=== PATIENT | female | born 2000 | race Hispanic/Latino ===

== ENCOUNTER 2022-03-30 20:26 | Emergency (ER) | payer SELFPAY ==
[2022-03-30] MEDS ORDERED: diphenhydrAMINE 25 MG CAP ONE (21:16)
[2022-03-30 22:21] LABS: BHCG - Serum Negative (NEGATIVE); Pregs Control Background? CLEAR/WHITE (CLR/WHITE); Pregs Control Bar Appear? YES (CONTROL BAR)
== END 2022-03-30 22:35 | disposition home or self-care (01) ==
LOC: CSHERS 20:26
DX: L25.9 Unspecified contact dermatitis, unspecified cause (principal)
CPT/HCPCS: 36415; 84703; 99283

== ENCOUNTER 2023-06-28 12:00 | Day surgery (SDC) | payer OTHER, BC ==
[2023-06-28 12:45] LABS: Bilirubin Neg (Negative); Blood, Urine 10 (Negative); Clarity Cloudy (Clear); Glucose, Urine (Dipstick) Normal (Negative); Ketone, Urine Negative (Negative); Leukocyte 500 (Negative); Nitrite Positive (Negative); Protein, Urine (Dipstick) 30 mg/dl (Neg-Trace); Specific Gravity, Urine 1.005 (1.005-1.030); Urobilinogen Normal mg/dL (Less than 2)
[2023-06-28 13:09] LABS: Bacteria/HPF 4+ HPF (None Seen); CAUTI Indications for Culture Dysuria,urgency,freq; RBC/HPF 0-3 HPF (0-3); Squamous Epithelial 0-3 HPF (0-3)
[2023-06-28 13:10] LABS: Urine Culture Reflex Yes Yes
[2023-06-28] MEDS ORDERED: hydrALAZINE 20 MG/ML VIAL SLOW IVP PRN (13:37)
[2023-06-29 10:47] LABS: Chlamydia by PCR, Vaginal Swab Not Detected (NotDetected); GC by PCR, Vaginal Swab Not Detected (NotDetected); Tric.vaginalis PCR,Vaginal Sw Not Detected (NotDetected)
== END 2023-06-28 15:10 | disposition home or self-care (01) ==
LOC: CSHLD/OP 12:00
PROVIDERS: ATTEND Family Medicine
DX: O36.8130 Decreased fetal movements, third trimester, not applicable or unspecified (principal); O99.891 Other specified diseases and conditions complicating pregnancy; R35.89 Other polyuria; O99.343 Other mental disorders complicating pregnancy, third trimester; O99.013 Anemia complicating pregnancy, third trimester; D64.9 Anemia, unspecified; N93.8 Other specified abnormal uterine and vaginal bleeding; O23.593 Infection of other part of genital tract in pregnancy, third trimester; Z79.899 Other long term (current) drug therapy; Z3A.31 31 weeks gestation of pregnancy
CPT/HCPCS: 76819; 81001; 87077; 87086; 87480; 87491; 87510; 87591; 87660; 87661; 99285

== ENCOUNTER 2023-07-17 01:56 | Day surgery (SDC) | payer OTHER, BC ==
[2023-07-17 02:18] VITALS: BMI 27.3
[2023-07-17] MEDS ORDERED: hydrALAZINE 20 MG/ML VIAL SLOW IVP PRN (02:58)
[2023-07-17] MEDS ORDERED: Acetaminophen 500 MG TAB PO SCH (03:15)
[2023-07-17] MEDS ORDERED: Lactated Ringer's 1,000 ML IV SCH (03:15)
[2023-07-17 03:36] LABS: #Eosinphils 0.1 10x3/uL (0.0-0.5); #Monocytes 0.7 10x3/uL (0.0-1.1); #Neutrophils 8.5 10x3/uL (1.5-8.4); %Basophils 0.3 % (0.0-2.0); %Eosinophils 0.8 % (0.0-6.0); %Monocytes 6.2 % (0.0-10.0); %Neutrophils 78.3 % (40.0-75.0); Hematocrit 35.4 % (34.9-44.5); Hemoglobin 11.9 g/dL (12.0-15.5); Mean Corpuscular HGB CONC 33.6 g/dL (32.0-36.0); Mean Corpuscular Hemoglobin 30.7 pg (27.0-33.0); Mean Corpuscular Volume 91.2 fl (81.6-98.3); Mean Platelet Volume 10.3 fl (7.4-10.4); Platelet Count 250 10x3/uL (150-450); RBC Distribution Width 12.5 % (11.5-14.5); Red Blood Cell (RBC) Count 3.88 10x6/uL (3.90-5.03); White Blood Cell (WBC) Count 10.8 10x3/uL (3.5-10.5)
[2023-07-17 03:51] LABS: ALT (SGPT) 11 U/L (8-55); AST (SGOT) 16 U/L (5-34); Albumin 3.3 g/dL (3.5-5.0); Alkaline Phosphatase 125 U/L (40-110); Anion Gap 13 mmol/L (10-20); BUN (Urea Nitrogen) 10 mg/dL (7.0-18.7); Bilirubin, Total Less than 0.2 mg/dL (0.2-1.2); Calc. Creatinine Clearance 124 mL/min (70-130); Calcium 8.9 mg/dL (7.8-10.44); Carbon Dioxide 21 mmol/L (22-29); Chloride 106 mmol/L (98-107); Estimated GFR 119; Globulin 3.2 g/dL (2.4-3.5); Glucose 83 mg/dL (70-105); Potassium 3.9 mmol/L (3.5-5.1); Protein, Total 6.5 g/dL (6.0-8.3); Sodium 136 mmol/L (136-145)
[2023-07-17 04:00] LABS: Bilirubin Neg (Negative); Blood, Urine 10 (Negative); Glucose, Urine (Dipstick) Normal (Negative); Ketone, Urine Negative (Negative); Leukocyte 500 (Negative); Nitrite Negative (Negative); Protein, Urine (Dipstick) 30 mg/dl (Neg-Trace); Specific Gravity, Urine 1.015 (1.005-1.030); Urobilinogen Normal mg/dL (Less than 2)
[2023-07-17 04:03] LABS: Clarity Hazy (Clear)
[2023-07-17 04:23] LABS: Bacteria/HPF 3+ HPF (None Seen)
[2023-07-17 04:24] LABS: RBC/HPF 0-3 HPF (0-3)
[2023-07-17 04:25] LABS: CAUTI Indications for Culture Pregnancy
[2023-07-17 04:29] LABS: Urine Culture Reflex Yes Yes
[2023-07-17] MEDS ORDERED: cefTRIAXone (ROCEPHIN) 1 GM VIAL IM SCH (05:30)
== END 2023-07-17 05:50 | disposition home or self-care (01) ==
LOC: CSHLD/OP 01:56
PROVIDERS: ATTEND Family Medicine
DX: O99.891 Other specified diseases and conditions complicating pregnancy (principal); R10.33 Periumbilical pain; O99.343 Other mental disorders complicating pregnancy, third trimester; F32.A Depression, unspecified; O99.013 Anemia complicating pregnancy, third trimester; D64.9 Anemia, unspecified; O23.43 Unspecified infection of urinary tract in pregnancy, third trimester; N39.0 Urinary tract infection, site not specified; Z3A.34 34 weeks gestation of pregnancy; Z79.899 Other long term (current) drug therapy
CPT/HCPCS: 76705; 80053; 81001; 83690; 85025; 87070; 87077; 87086; 87186; 96360; 96372; 99285; J0696

== ENCOUNTER 2023-08-17 07:23 | Inpatient (IN) | payer BC, OTHER ==
[2023-08-17] MEDS ORDERED: Ondansetron PF 4 MG/2 ML Vial IVP PRN (07:45)
[2023-08-17] MEDS ORDERED: Promethazine HCl 25 MG/ML VIAL IM PRN (07:45)
[2023-08-17] MEDS ORDERED: Oxytocin 30 units/NS 500 ML 500 ML IV SCH (07:45)
[2023-08-17] MEDS ORDERED: hydrALAZINE 20 MG/ML VIAL SLOW IVP PRN ×2 (07:45→19:25)
[2023-08-17] MEDS ORDERED: Misoprostol 200 MCG TAB PR PRN (07:46)
[2023-08-17] MEDS ORDERED: Carboprost 250 MCG/ML AMP IM PRN (07:46)
[2023-08-17] MEDS ORDERED: Acetaminophen 500 MG TAB PO PRN (07:46)
[2023-08-17] MEDS ORDERED: Methylergonovine 0.2 MG/ML VIAL IM PRN (07:46)
[2023-08-17] MEDS ORDERED: Tranexamic Acid 1,000 MG/10 ML VIAL IVP PRN (07:46)
[2023-08-17] MEDS ORDERED: fentaNYL 50 mcg/mL 1 mL Vial SLOW IVP PRN (07:46)
[2023-08-17] MEDS ORDERED: Lidocaine 1% (PF) 30 ML VIAL ONE (08:10)
[2023-08-17 08:15] LABS: Hematocrit 37.4 % (34.9-44.5); Hemoglobin 13.1 g/dL (12.0-15.5); Mean Corpuscular Hemoglobin 30.8 pg (27.0-33.0); Mean Corpuscular Volume 87.8 fl (81.6-98.3); Platelet Count 228 10x3/uL (150-450); RBC Distribution Width 12.4 % (11.5-14.5); Red Blood Cell (RBC) Count 4.26 10x6/uL (3.90-5.03); White Blood Cell (WBC) Count 13.7 10x3/uL (3.5-10.5)
[2023-08-17 08:53] LABS: Syphilis Antibody Nonreactive (Nonreactive); Syphilis Antibody Index 0.04 S/CO (<1.00 Non-Reactive)
[2023-08-17 08:55] LABS: HBSAg Index 0.17 S/CO (0-0.99); Hep B Surf Ag - L&D Non-Reactive S/CO (NonReactive)
[2023-08-17] MEDS: hydrALAZINE 20 MG/ML VIAL SLOW IVP PRN ×2 (09:00→09:46)
[2023-08-17] MEDS ORDERED: Labetalol HCl 100 MG/20 ML VIAL SLOW IVP PRN ×2 (09:11)
[2023-08-17] MEDS ORDERED: Calcium Gluc 4.6 MEQ/10 ML (100 MG/ML) SLOW IVP PRN (09:11)
[2023-08-17] MEDS ORDERED: Lorazepam 2 MG/ML VIAL SLOW IVP PRN (09:11)
[2023-08-17] MEDS ORDERED: Magnesium Sulfate 20 gm/500 ml 20 GM/500 ML BAG IVPB SCH ×2 (09:15)
[2023-08-17] MEDS ORDERED: Magnesium Sulfate 20 gm/500 ml 20 GM/500 ML BAG ONE (09:24)
[2023-08-17 10:18] LABS: ALT (SGPT) 26 U/L (8-55); AST (SGOT) 30 U/L (5-34); Albumin 3.1 g/dL (3.5-5.0); Alkaline Phosphatase 195 U/L (40-110); Anion Gap 14 mmol/L (10-20); BUN (Urea Nitrogen) 10 mg/dL (7.0-18.7); Bilirubin, Total 0.2 mg/dL (0.2-1.2); Calc. Creatinine Clearance 0 mL/min (70-130); Calcium 8.7 mg/dL (7.8-10.44); Carbon Dioxide 17 mmol/L (22-29); Chloride 106 mmol/L (98-107); Estimated GFR 117; Globulin 3.4 g/dL (2.4-3.5); Glucose 80 mg/dL (70-105); Potassium 4.4 mmol/L (3.5-5.1); Protein, Total 6.5 g/dL (6.0-8.3); Sodium 133 mmol/L (136-145)
[2023-08-17] MEDS ORDERED: Lidocaine 1% w/Epinephrine 1:100K 20 ML VIAL FS PRN (11:32)
[2023-08-17 19:23] VITALS: BMI 28.5
[2023-08-17] MEDS ORDERED: Benzocaine-Menthol 82.5 ML CAN TOP PRN (19:25)
[2023-08-17] MEDS ORDERED: Milk Of Magnesia 30 ML UDCUP PO PRN (19:25)
[2023-08-17] MEDS ORDERED: Lanolin Ointment 7 GM TUBE TOP PRN (19:25)
[2023-08-17] MEDS ORDERED: Boostrix 0.5 ML (Tdap) VIAL (>/=7 yrs of age) IM ONE (19:25)
[2023-08-17] MEDS ORDERED: diphenhydrAMINE 25 MG CAP PO PRN (19:25)
[2023-08-17] MEDS ORDERED: Bisacodyl 10 MG SUPP PR PRN (19:25)
[2023-08-17] MEDS ORDERED: Preparation H Ointment 28 GM TUBE PR PRN (19:25)
[2023-08-17] MEDS ORDERED: Prenatal Vitamin 1 TAB PO SCH (20:00)
[2023-08-17] MEDS ORDERED: Ferrous Sulfate 325 MG TAB PO SCH (20:00)
[2023-08-17] MEDS: Docusate 100 MG CAP PO SCH (21:12)
[2023-08-17] MEDS: Acetaminophen 500 MG TAB PO SCH (21:12)
[2023-08-17] MEDS: Ibuprofen 800 MG TAB PO SCH (21:52)
[2023-08-18] MEDS: Acetaminophen 500 MG TAB PO SCH ×4 (02:23→21:18)
[2023-08-18] MEDS: Ibuprofen 800 MG TAB PO SCH ×3 (08:12→21:17)
[2023-08-18] MEDS: Ferrous Sulfate 325 MG TAB PO SCH (10:48)
[2023-08-18] MEDS: Prenatal Vitamin 1 TAB PO SCH (11:17)
[2023-08-18] MEDS: Docusate 100 MG CAP PO SCH ×2 (11:17→21:17)
[2023-08-18] MEDS ORDERED: NIFEdipine XL 30 MG ER.TAB PO SCH (12:30)
[2023-08-19] MEDS: Acetaminophen 500 MG TAB PO SCH ×4 (03:13→20:49)
[2023-08-19] MEDS: Ibuprofen 800 MG TAB PO SCH ×3 (05:37→23:06)
[2023-08-19] MEDS: Ferrous Sulfate 325 MG TAB PO SCH (07:08)
[2023-08-19] MEDS: Prenatal Vitamin 1 TAB PO SCH (09:23)
[2023-08-19] MEDS: Docusate 100 MG CAP PO SCH ×2 (09:23→20:49)
[2023-08-19] MEDS: NIFEdipine XL 30 MG ER.TAB PO SCH (09:23)
[2023-08-20] MEDS: Acetaminophen 500 MG TAB PO SCH ×3 (03:00→14:48)
[2023-08-20] MEDS: Ibuprofen 800 MG TAB PO SCH ×2 (05:46→14:49)
[2023-08-20] MEDS: NIFEdipine XL 30 MG ER.TAB PO SCH (09:00)
[2023-08-20] MEDS: Prenatal Vitamin 1 TAB PO SCH (09:01)
[2023-08-20] MEDS: Docusate 100 MG CAP PO SCH (09:01)
[2023-08-20] MEDS: Ferrous Sulfate 325 MG TAB PO SCH (10:13)
[2023-08-20 15:26] VITALS: BP 127/90; TEMP 98.3
== END 2023-08-20 15:00 | disposition home or self-care (01) | DRG 807 ==
LOC: CSHLD/OP 07:23 → CSHLD 07:52 → CSHPP 08-18 10:30
PROVIDERS: ADMIT Family Medicine; ATTEND Family Medicine
PROC: 10E0XZZ Delivery of Products of Conception, External Approach (ICD-10-PCS; principal; 2023-08-17)
PROC: 0KQM0ZZ Repair Perineum Muscle, Open Approach (ICD-10-PCS; 2023-08-17)
DX: O99.02 Anemia complicating childbirth (principal); Z37.0 Single live birth; Z3A.38 38 weeks gestation of pregnancy; O70.1 Second degree perineal laceration during delivery; D50.9 Iron deficiency anemia, unspecified; R51.9 Headache, unspecified; O99.893 Other specified diseases and conditions complicating puerperium; R60.0 Localized edema; O14.15 Severe pre-eclampsia, complicating the puerperium
CPT/HCPCS: 36415; 51702; 80053; 82570; 84156; 85027; 86780; 86850; 86900; 86901; 87340; 99285; J0360; J3475